=== PATIENT | female | born 1985 | race Asian ===

== ENCOUNTER → 2022-02-15 15:20 | Outpatient (CLI) | payer OTHER, SELFPAY ==
[2022-02-20 13:07] LABS: Candida species Negative
[2022-02-20 13:08] LABS: Trichomoas vaginalis Negative
[2022-02-20 13:09] LABS: Gardnerella vaginalis POSITIVE
== END ==
PROVIDERS: PCP Physician Assistant; Visit Provider Physician Assistant
DX: N89.8 Other specified noninflammatory disorders of vagina (principal); Z01.419 Encounter for gynecological examination (general) (routine) without abnormal findings
CPT/HCPCS: 87480; 87510; 87660

== ENCOUNTER → 2022-07-11 10:08 | Outpatient (CLI) | payer OTHER, SELFPAY | PROVIDERS: PCP Physician Assistant; Visit Provider Physician Assistant Medical | DX: B37.0 Candidal stomatitis (principal); J02.9 Acute pharyngitis, unspecified | CPT/HCPCS: 87070 ==

== ENCOUNTER → 2024-04-19 10:51 | Outpatient (CLI) | payer OTHER, MEDICAID, SELFPAY ==
[2024-04-19 19:26] LABS: Add Manual Diff / Slide Review NO; Basophils Absolute Auto 100 /uL (0-100); Basophils Percent Auto 1.2 % (0-2); Eosinophils Absolute Auto 400 /uL (0-450); Eosinophils Percent Auto 6.2 % (2-4); Hematocrit 31.5 % (36-46); Hemoglobin 10.3 g/dL (12.0-16.0); Lymphocytes Absolute Auto 2100 /uL (1100-4500); Lymphocytes Percent Auto 35.7 % (25-40); Mean Corpuscular HGB Conc 32.6 % (30-36); Mean Corpuscular Hemoglobin 24.7 PG (26-34); Mean Corpuscular Volume 75.7 fL (80-100); Monocytes Absolute Auto 500 /uL (0-900); Monocytes Percent Auto 8.2 % (3-14); Neutrophils Absolute Auto 2900 /uL (1500-7000); Neutrophils Percent Auto 48.7 % (50-75); Platelet Count 318 X10^3/uL (150-400); Red Blood Cell Count 4.16 X10^6/uL (4.0-5.2)
[2024-04-19 19:37] LABS: HEMOLYSIS < 15 (0-50); Iron 43 ug/dL (37-170)
[2024-04-19 19:51] LABS: Percent Iron Saturation 11 % (15-50); Total Iron Binding Capacity 405 ug/dL (265-497); Transferrin 317 mg/dL (206-381)
[2024-04-19 20:15] LABS: Ferritin 6 ng/mL (6-137)
== END ==
PROVIDERS: PCP Family Medicine; Visit Provider Family Medicine
DX: D50.9 Iron deficiency anemia, unspecified (principal); E55.9 Vitamin D deficiency, unspecified
CPT/HCPCS: 82306; 82728; 83540; 83550; 85025

== ENCOUNTER → 2025-09-28 13:07 | Outpatient (CLI) | payer BC, SELFPAY ==
[2025-09-28 19:19] LABS: Add Manual Diff / Slide Review NO; Hematocrit 35.5 % (36-46); Hemoglobin 12.3 g/dL (12.0-16.0); Lymphocytes Absolute Auto 2200 /uL (1100-4500); Mean Corpuscular HGB Conc 34.5 % (30-36); Mean Corpuscular Hemoglobin 28.4 PG (26-34); Mean Corpuscular Volume 82.1 fL (80-100); Platelet Count 261 X10^3/uL (150-400)
[2025-09-28 19:23] LABS: HEMOLYSIS < 15 (0-50); Iron 132 ug/dL (37-170)
[2025-09-28 19:37] LABS: Percent Iron Saturation 35 % (15-50); Total Iron Binding Capacity 378 ug/dL (265-497); Transferrin 315 mg/dL (206-381)
[2025-09-28 20:05] LABS: Thyroid Stimulating Hormone 3.07 uIU/mL (0.47-4.68)
[2025-09-28 20:09] LABS: Ferritin 8 ng/mL (6-137)
[2025-09-28 20:24] LABS: Vitamin B12 798 pg/mL (239-931)
== END ==
PROVIDERS: Acupuncturist; PCP Family Medicine
DX: D50.9 Iron deficiency anemia, unspecified (principal)
CPT/HCPCS: 82607; 82728; 83540; 83550; 84443; 85025